=== PATIENT | female | born 1950 | race Caucasian/White ===

== ENCOUNTER 2016-12-02 09:46 | Emergency (ER) | payer MEDICARE, BC ==
[~2016-12-02] VITALS: Ht 162.6 cm; Wt 92.5 kg
[~2016-12-02 09:46] MED LIST: ALBU8.5H3 INH; AMLO-218 PO; ASPI-664 PO; DICL112S2 TP; ERGO400T4 PO; FLUT16SP17 NASAL; GABA300C16 PO; HYD25 PO; HYDR-3498 PO; MELO7.5O PO; METO50TA16 PO; NIT4 SL; OLOP2.5D BOTH EYES
[2016-12-02 09:50] VITALS: Ht 162.6 cm; Wt 92.5 kg
[2016-12-02] MEDS ORDERED: HYDROCODONE/APAP (5/325) TAB PO ONE (11:30)
--- NOTE | 2016-12-02 12:35 | RADRPT ---
PROCEDURE: XR Humerus. CLINICAL INDICATION: Right arm pain and trauma. TECHNIQUE: AP and lateral views of the right humerus were performed. COMPARISON: None. FINDINGS: The osseous structures are intact. No destructive bony lesions are identified. Interosseous spaces appear unremarkable. Small soft tissue calcifications are identified posterior to the elbow. IMPRESSION: No visualized traumatic injury. Small soft tissue calcification posterior to the elbow. These likely reflect heterotopic soft tissue calcifications. If there is high clinical suspicion for traumatic injury, further evaluation with CT should be consi dered. RPTAT: AA .Bruce Martinez MD, Date Time Electronically viewed and signed by .Bruce Martinez MD, on 12/02/2016 12:35 .P/
--- NOTE | 2016-12-02 12:36 | RADRPT ---
PROCEDURE: XR Forearm 2 Views. CLINICAL INDICATION: Right forearm pain. TECHNIQUE: AP and lateral views of the right forearm were obtained. COMPARISON: No prior studies are available for comparison. FINDINGS: The osseous structures are intact. No destructive bony lesions are identified. Interosseous spaces appear normal. The soft tissues are unremarkable. IMPRESSION: Unremarkable right forearm. If further characterization is needed CT or MRI could be helpful. If there is high clinical suspicion for traumatic injury, further evaluation with CT should be consi dered. RPTAT: AA .Bruce Martinez MD, Date Time Electronically viewed and signed by .Bruce Martinez MD, on 12/02/2016 12:36 .P/
[2016-12-02] MEDS ORDERED: ACET500C5 PO (12:46)
[2016-12-02] MEDS ORDERED: HYDR-906 PO (12:46)
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
== END 2016-12-02 13:09 | disposition home or self-care (01) ==
LOC: FTE 09:46
DX: T75.4XXA Electrocution, initial encounter (principal); I10 Essential (primary) hypertension; J45.909 Unspecified asthma, uncomplicated; Z79.82 Long term (current) use of aspirin
CPT/HCPCS: 93005

== ENCOUNTER 2017-04-08 04:09 | Inpatient (IN) | END 2017-04-11 15:25 | disposition home or self-care (01) | DRG 694 ==

== ENCOUNTER 2017-04-24 01:23 | Emergency (ER) | END 2017-04-24 08:37 | disposition home or self-care (01) ==

== ENCOUNTER 2017-08-26 13:59 | Emergency (ER) | END 2017-08-26 19:14 | disposition home or self-care (01) ==

== ENCOUNTER 2017-12-15 17:10 | Emergency (ER) | END 2017-12-15 20:30 | disposition home or self-care (01) ==

== ENCOUNTER 2018-01-05 17:24 | Emergency (ER) | END 2018-01-05 20:16 | disposition home or self-care (01) ==